=== PATIENT | male | born 1960 | race Caucasian/White ===

== ENCOUNTER 2017-07-07 19:40 | Emergency (ER) | payer OTHER ==
[~2017-07-07 19:40] MED LIST: ALBU4TAB10 PO; CMD5 PO; CMD75 PO; PRLSR20 PO; SIMV20TA2 PO; SYMIN/8045 INH; VERA180T15 PO; VGR50 PO; [UNRECOGNIZED DRUG - OTHER]
[2017-07-07] MEDS ORDERED: MECLIZINE HCL 25 MG TAB PO ONE (21:39)
[2017-07-07] MEDS ORDERED: ONDANSETRON INJ 2 MG/ML 2 ML VIAL ONE (21:40)
[2017-07-07] MEDS ORDERED: DIAZEPAM INJ 5 MG/ML 2 ML CARP ONE (21:40)
[2017-07-07 23:09] LABS: INR 2.7 (0.9-1.1)
[2017-07-07 23:10] LABS: BASO % 0.3 %; BASO ABS # 0.03 K/uL (0-0.2); EOS % 0.8 %; EOS ABS # 0.07 K/uL (0-0.5); HEMATOCRIT 47.3 % (42-52); HEMOGLOBIN 16.9 g/dL (14.0-18.0); IG# 0.04 K/uL (0.00-0.02); LYMPH % 7.1 %; LYMPH ABS # 0.65 K/uL (1.2-3.4); MEAN CELL VOLUME 86.8 fL (80-100); MEAN CORPUSCULAR HGB CONC 35.7 g/dl (32-36); MEAN PLATELET VOLUME 10.6 fL (7.4-10.4); MONO % 2.7 %; MONO ABS # 0.25 K/uL (0.11-0.59); NEUT % 88.7 %; NEUT ABS # 8.16 K/uL (1.4-6.5); PLATELET COUNT 191 K/uL (130-400); RED CELL DISTRIBUTION WIDTH CV 13.5 % (11.5-14.5); RED CELL DISTRIBUTION WIDTH SD 42.4 fL (36.4-46.3)
[2017-07-07 23:13] LABS: ALBUMIN 3.4 gm/dl (3.4-5.0); ALKALINE PHOSPHATASE 170 U/L (45-117); ALT/SGPT 45 U/L (12-78); AST/SGOT 26 U/L (15-37); BLOOD UREA NITROGEN 18 mg/dl (7-18); CALCIUM 8.7 mg/dl (8.5-10.1); CARBON DIOXIDE 27 mmol/L (21-32); CKMB 0.8 ng/ml (0.5-3.6); CREATININE 1.13 mg/dl (0.60-1.40); GLUCOSE 145 mg/dl (70-99); LIPASE 129 U/L (73-393); POTASSIUM 3.7 mmol/L (3.5-5.1); SODIUM 134 mmol/L (136-145); TOTAL PROTEIN 8.6 gm/dl (6.4-8.2)
--- NOTE | 2017-07-07 23:41 | EMERGENCY ROOM VISIT NOTE ---
History Report prepared by Andrei: Eryn Cole Under the Supervision of: Dr. Daniel Huntley M.D. First contact with patient: 23:23 Stated Complaint: DIZZY, NAUSEA History of Present Illness The patient is a 56 year old male who presents to the Emergency Room with complaints of persistent dizziness that began about 2 hours ago. He reports that this afternoon he was trying to take a nap when he began feeling dizzy and like the room was spinning. The patient states that his symptoms worsen when he turns his head to either side, noting that it goes away when he returns his head to its normal position. 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 The last time he had his Coumadin check was about one month ago. He reports that the last time he ate anything was about 6 hours ago. Source of History: patient Onset: 2 hours ago Position: other (neuro) Quality: other (dizziness) Timing: other (persistent) Modifying Factors (Worsening): other (turns head side to side) Modifying Factors (Relieving): other (return head to its normal position) Note: Associated symptoms: room spinning. Review of Systems See HPI for pertinent positives & negatives. A total of 10 systems reviewed and were otherwise negative. Past Medical & Surgical Medical Problems: (1) Blood clot in vein Family History Blood clots Social History Smoking Status: Never Smoker Smokeless Tobacco Use: No Alcohol Use: occasionally Drug Use: none Marital Status: Housing Status: lives with roommate Occupation Status: employed Current/Historical Medications Scheduled Albuterol (Ventolin), 4 MG PO PRN Allopurinol (Zyloprim Unknown Dose), DAILY Budesonide/Formoterol Fumarate (Symbicort 80/4.5 Inhaler), 2 PUFFS INH BID Omeprazole (Prilosec), 20 MG PO DAILY Sildenafil Citrate (Viagra), 50 MG PO PRN Simvastatin (Zocor), 20 MG PO QPM Verapamil Sust Rel (Calan Sr Ext Rel), 360 MG PO DAILY Warfarin Sod (Coumadin *), 5 MG PO DAILY Warfarin Sod (Coumadin *), 7.5 MG PO DIRECTED Allergies Coded Allergies: No Known Allergies (Verified , 10/06/11) Uncoded Allergies: NKA (Allergy, Unknown, 09/08/14) No Known Allergies Physical Exam Physical Exam GENERAL: Awake, alert, well-appearing, in no acute distress HENT: Normocephalic, atraumatic. Oropharynx unremarkable. EYES: Normal conjunctiva. Sclera non-icteric. NECK: Supple. No nuchal rigidity. FROM. No JVD. RESPIRATORY: Clear to auscultation. CARDIAC: Regular rate, normal rhythm. Extremities warm and well perfused. Pulses equal. ABDOMEN: Soft, non-distended. No tenderness to palpation. No rebound or guarding. No masses. RECTAL: Deferred. MUSCULOSKELETAL: Chest examination reveals no tenderness. The back is symmetrical on inspection without obvious abnormality. There is no CVA tenderness to palpation. No joint edema. LOWER EXTREMITIES: Calves are equal size bilaterally and non-tender. No edema. No discoloration. NEURO: Positive [place]-Hallpike on left and right. SKIN: No rash or jaundice noted. Medical Decision & Procedures ER Provider Diagnostic Interpretation: HEAD WITHOUT CONTRAST (CT) CT DOSE: HISTORY: Mental status change HWO, DOWNTIME TECHNIQUE: Multiaxial CT images of the head were performed without the use of intravenous contrast. A dose lowering technique was utilized adhering to the principles of ALARA. Comparison: None. Findings: The paranasal sinuses and mastoid air cells are clear. The calvarium and skull base are intact. The ventricles and sulci are within normal limits. There is no mass, hematoma, midline shift, or acute infarct. Impression: No acute intracranial abnormality. The above report was generated using voice recognition software. It may contain grammatical, syntax or spelling errors. Electronically signed by: Manohar Bonilla M.D. 07/08/2017 6:44 AM Dictated Date/Time: 07/08/2017 6:41 AM The status of this report is Signed. Draft = Not yet reviewed or approved by Radiologist. Signed = Reviewed and approved by Radiologist. <AttendingPhy></AttendingPhy> <FamilyPhy>Matt Palma M.D.</FamilyPhy> < PrimaryPhy>Matt Palma M.D.</PrimaryPhy> <UnitNumber>[id number]</UnitNumber > <VisitNumber>[id number] Patient Name: NOEMI RINCON Unit Number: [id number] Dictated: 07/08/17645 Transcribed: 07/08/17645 MS Printed Date/Time: [~ rep prt dt]/[~ rep prt tm] [~ rep ct labl] - [~ rep ct ivnm] [facility] [place] [address] Dictated: 07/08/17645 Transcribed: 07/08/17645 MS Printed Date/Time: [~ rep prt dt]/[~ rep prt tm] [~ rep ct labl] - [~ rep ct ivnm] CHEST ONE VIEW PORTABLE CLINICAL HISTORY: DIZZY mental status change COMPARISON STUDY: 12/03/2007 FINDINGS: Mild cardiomegaly. Lungs are clear. Diaphragms smooth. IMPRESSION: No acute process The above report was generated using voice recognition software. It may contain grammatical, syntax or spelling errors. Electronically signed by: Manohar Bonilla M.D. 07/08/2017 6:46 AM Dictated Date/Time: 07/08/2017 6:46 AM The status of this report is Signed. Draft = Not yet reviewed or approved by Radiologist. Signed = Reviewed and approved by Radiologist. <AttendingPhy></AttendingPhy> <FamilyPhy>Matt Palma M.D.</FamilyPhy> < PrimaryPhy>Matt Palma M.D.</PrimaryPhy> <UnitNumber>[id number]</UnitNumber > <VisitNumber>[id number]</VisitNumber> <PatientName>NOEMI RINCON</PatientName > <DateOfBirth>1960</DateOfBirth> <Location>[facility]</Location> <ServiceDate> 07/07/17</ServiceDate> <MNE>ESINDI</MNE> <OrderingPhy>Daniel Huntley MD</ OrderingPhy> <OrderingPhyMNE>f rep ord dr yun</OrderingPhyMNE> <DictatingPhyMNE> f rep dict dr ynu</DictatingPhyMNE> <CCListMNE>f rep ct josee</CCListMNE> < AdmittingPhyMNE>f pt admit dr yun</AdmittingPhyMNE> <AttendingPhyMNE>f pt attend dr mne</AttendingPhyMNE> <ConsultingPhyMNE>f pt consult dr yun</ConsultingPhyMNE> <FamilyPhyMNE>f pt fam dr yun</FamilyPhyMNE> <OtherPhyMNE>f pt other dr yun</OtherPhyMNE> < PrimaryPhyMNE>f pt prim care dr yun</PrimaryPhyMNE> <ReferringPhyMNE>f pt referring dr yun</ReferringPhyMNE> Laboratory Results 07/07/17 21:30 Red Blood Count 5.45, Mean Corpuscular Volume 86.8, Mean Corpuscular Hemoglobin 31.0, Mean Corpuscular Hemoglobin Concent 35.7, Mean Platelet Volume 10.6, Neutrophils (%) (Auto) 88.7, Lymphocytes (%) (Auto) 7.1, Monocytes (%) (Auto) 2.7, Eosinophils (%) (Auto) 0.8, Basophils (%) (Auto) 0.3, Neutrophils # (Auto) 8.16, Lymphocytes # (Auto) 0.65, Monocytes # (Auto) 0.25, Eosinophils # (Auto) 0.07, Basophils # (Auto) 0.03 07/07/17 21:30 Test 07/07/17 21:30 White Blood Count 9.20 K/uL (4.8-10.8) Red Blood Count 5.45 M/uL (4.7-6.1) Hemoglobin 16.9 g/dL (14.0-18.0) Hematocrit 47.3 % (42-52) Mean Corpuscular Volume 86.8 fL (80-100) Mean Corpuscular Hemoglobin 31.0 pg (25-34) Mean Corpuscular Hemoglobin Concent 35.7 g/dl (32-36) Platelet Count 191 K/uL (130-400) Mean Platelet Volume 10.6 fL (7.4-10.4) Neutrophils (%) (Auto) 88.7 % Lymphocytes (%) (Auto) 7.1 % Monocytes (%) (Auto) 2.7 % Eosinophils (%) (Auto) 0.8 % Basophils (%) (Auto) 0.3 % Neutrophils # (Auto) 8.16 K/uL (1.4-6.5) Lymphocytes # (Auto) 0.65 K/uL (1.2-3.4) Monocytes # (Auto) 0.25 K/uL (0.11-0.59) Eosinophils # (Auto) 0.07 K/uL (0-0.5) Basophils # (Auto) 0.03 K/uL (0-0.2) RDW Standard Deviation 42.4 fL (36.4-46.3) RDW Coefficient of Variation 13.5 % (11.5-14.5) Immature Granulocyte % (Auto) 0.4 % Immature Granulocyte # (Auto) 0.04 K/uL (0.00-0.02) Prothrombin Time 28.3 SECONDS (9.0-12.0) Prothromb Time International Ratio 2.7 (0.9-1.1) Anion Gap 7.0 mmol/L (3-11) Estimated GFR () 84.3 Estimated GFR (Non- 72.8 BUN/Creatinine Ratio 15.8 (10-20) Calcium Level 8.7 mg/dl (8.5-10.1) Total Bilirubin 0.5 mg/dl (0.2-1) Direct Bilirubin 0.1 mg/dl (0-0.2) Aspartate Amino Transf (AST/SGOT) 26 U/L (15-37) Alanine Aminotransferase (ALT/SGPT) 45 U/L (12-78) Alkaline Phosphatase 170 U/L (45-117) Total Creatine Kinase 114 U/L (39-308) Creatine Kinase MB 0.8 ng/ml (0.5-3.6) Creatine Kinase MB Ratio 0.7 (0-3.0) Troponin I < 0.015 ng/ml (0-0.045) Total Protein 8.6 gm/dl (6.4-8.2) Albumin 3.4 gm/dl (3.4-5.0) Lipase 129 U/L (73-393) Labs reviewed by ED physician. Medical Decision Differential diagnosis: Etiologies such as benign positional vertigo, dehydration, hypovolemia, anemia, tumor, infection, hypoglycemia, electrolyte abnormalities, cardiac sources, intracerebral event, toxicologic, neurologic, as well as others were entertained. This is a 56-year-old male who presents the emergency department complaining of dizziness. The patient presents during period of high volume high acuity during a unscheduled [facility] downtime. Evie-Hallpike maneuver shows the patient to have nystagmus on the right. Based on this I strongly suspect that the patient is suffering from vertigo however he is on Coumadin therefore he was sent for CAT scan of the head. This did not show any acute process. The patient was also given meclizine as well as Valium in the emergency department and Zofran. Repeat examination revealed improvement the patient's symptoms. I do feel the patient is well enough to be discharged home follow-up with the primary care physician. Patient was in agreement with the treatment plan. Medication Reconcilliation Current Medication List: was personally reviewed by me Impression Primary Impression: Vertigo Scribe Attestation The scribe's documentation has been prepared under my direction and personally reviewed by me in its entirety. I confirm that the note above accurately reflects all work, treatment, procedures, and medical decision making performed by me. Departure Information Dispostion Home / Self-Care Referrals Matt Palma M.D. (PCP)
--- NOTE | 2017-07-08 06:46 | DIAGNOSTIC IMAGING REPORT ---
HEAD WITHOUT CONTRAST (CT) CT DOSE: HISTORY: Mental status change HWO, DOWNTIME TECHNIQUE: Multiaxial CT images of the head were performed without the use of intravenous contrast. A dose lowering technique was utilized adhering to the principles of ALARA. Comparison: None. Findings: The paranasal sinuses and mastoid air cells are clear. The calvarium and skull base are intact. The ventricles and sulci are within normal limits. There is no mass, hematoma, midline shift, or acute infarct. Impression: No acute intracranial abnormality. The above report was generated using voice recognition software. It may contain grammatical, syntax or spelling errors. Electronically signed by: Manohar Bonilla M.D. 07/08/2017 6:44 AM Dictated Date/Time: 07/08/2017 6:41 AM
--- NOTE | 2017-07-08 06:48 | DIAGNOSTIC IMAGING REPORT ---
CHEST ONE VIEW PORTABLE CLINICAL HISTORY: DIZZY mental status change COMPARISON STUDY: 12/03/2007 FINDINGS: Mild cardiomegaly. Lungs are clear. Diaphragms smooth. IMPRESSION: No acute process The above report was generated using voice recognition software. It may contain grammatical, syntax or spelling errors. Electronically signed by: Manohar Bonilla M.D. 07/08/2017 6:46 AM Dictated Date/Time: 07/08/2017 6:46 AM
== END 2017-07-07 23:19 | disposition home or self-care (01) ==
LOC: C.EDC 19:40
DX: R42 Dizziness and giddiness (principal); Z79.01 Long term (current) use of anticoagulants; Z79.899 Other long term (current) drug therapy; Z86.718 Personal history of other venous thrombosis and embolism; Z83.2 Family history of diseases of the blood and blood-forming organs and certain disorders involving the immune mechanism